=== PATIENT | female | born 2000 | race Caucasian/White ===

== ENCOUNTER 2025-01-15 18:13 | Emergency (ER) | payer OTHER ==
[~2025-01-15] VITALS: Ht 165.1 cm; Wt 89.1 kg
[2025-01-15] MEDS ORDERED: RABIES IMMUNE GLOBULIN 1500 INTERNATIONAL UNIT/5 ML VIAL IM.IMMUN ONE (20:45)
[2025-01-15 20:51] VITALS: BP 126/84; TEMP 97.6; O2SAT 98
[2025-01-15] MEDS: RABIES VACCINE HUMAN 2.5 INTERNATIONAL UNITS/ML VIAL (IMOVAX) IM ONE (20:59)
[2025-01-15] MEDS: RABIES IMMUNE GLOBULIN 1500 INTERNATIONAL UNIT/5 ML VIAL IM.IMMUN ONE (21:05)
[2025-01-15] MEDS: RABIES IMMUNE GLOBULIN 300 INTERNATIONAL UNITS/1 ML VIAL IM.IMMUN ONE (21:06)
== END 2025-01-15 21:17 | disposition home or self-care (01) ==
LOC: M ED 18:13
DX: Z20.3 Contact with and (suspected) exposure to rabies (principal); Z23 Encounter for immunization

== ENCOUNTER 2025-01-18 07:43 | Emergency (ER) | payer OTHER ==
[~2025-01-18] VITALS: Ht 165.1 cm; Wt 89.3 kg
[2025-01-18 07:50] VITALS: BP 115/74; TEMP 97.6; O2SAT 97
[2025-01-18] MEDS: RABIES VACCINE HUMAN 2.5 INTERNATIONAL UNITS/ML VIAL (IMOVAX) IM ONE (08:07)
== END 2025-01-18 08:13 | disposition home or self-care (01) ==
LOC: M ED 07:43
DX: Z20.3 Contact with and (suspected) exposure to rabies (principal); Z23 Encounter for immunization

== ENCOUNTER 2025-01-22 16:56 | Emergency (ER) | payer OTHER ==
[~2025-01-22] VITALS: Ht 165.1 cm; Wt 89.4 kg
[2025-01-22 17:00] VITALS: TEMP 97.8
[2025-01-22] MEDS: RABIES VACCINE HUMAN 2.5 INTERNATIONAL UNITS/ML VIAL (IMOVAX) IM ONE (18:33)
[2025-01-22 18:47] VITALS: BP 118/74; O2SAT 97
== END 2025-01-22 18:48 | disposition home or self-care (01) ==
LOC: M ED 16:56
DX: Z20.3 Contact with and (suspected) exposure to rabies (principal); Z23 Encounter for immunization

== ENCOUNTER 2025-01-24 10:26 | Inpatient (IN) | payer OTHER ==
[~2025-01-24] VITALS: Ht 165.1 cm; Wt 90.0 kg
[2025-01-24 11:05] LABS: PLATELET COUNT, AUTOMATED 364 10^3/uL (150-450)
[2025-01-24 11:35] LABS: ETHYL ALCOHOL (ETHANOL) < 0.003 % (0.000-0.010)
[2025-01-24 11:36] LABS: ALT/SGPT 17 U/L (7.0-40); AST/SGOT 14 U/L (<34); CALCIUM LEVEL 9.8 MG/DL (8.5-10.1); CARBON DIOXIDE LEVEL 23 MMOL/L (20-31); CHLORIDE LEVEL 106 MMOL/L (98-107); CREATININE FOR GFR 0.66 MG/DL (0.55-1.30); GLOMERULAR FILTRATION RATE > 90.0 (>60); POTASSIUM SERUM 4.3 MMOL/L (3.5-5.1); SALICYLATE LEVEL < 3.0 MG/DL (<30); SODIUM LEVEL 140 MMOL/L (136-145)
[2025-01-24 11:37] LABS: HCG, SERUM QUALITATIVE NEGATIVE (NEGATIVE)
[2025-01-24] MEDS ORDERED: HOME MED LIST COMPLETE! XX SCH (12:00)
[2025-01-24 12:44] LABS: AMPHETAMINES LEVEL URINE NEGATIVE (NEGATIVE); BARBITURATES URINE NEGATIVE (NEGATIVE); BENZODIAZEPINES URINE NEGATIVE (NEGATIVE); COCAINE METABOLITE URINE NEGATIVE (NEGATIVE); METHADONE URINE NEGATIVE (NEGATIVE); OPIATES URINE NEGATIVE (NEGATIVE)
[2025-01-24 12:45] LABS: PHENCYCLIDINE URINE NEGATIVE (NEGATIVE)
[2025-01-24 12:46] LABS: CANNABINOIDS URINE POSITIVE (NEGATIVE)
[2025-01-24] MEDS ORDERED: HALOPERIDOL 5 MG TAB PO PRN (13:50)
[2025-01-24] MEDS ORDERED: MOM 30 ML SUSPENSION UDC PO PRN (13:50)
[2025-01-24] MEDS ORDERED: ACETAMINOPHEN 325 MG TAB PO PRN (13:50)
[2025-01-24] MEDS ORDERED: LORazepam 1 MG TAB PO PRN (13:50)
[2025-01-24] MEDS ORDERED: IBUPROFEN 400 MG TAB PO PRN (13:50)
[2025-01-24] MEDS ORDERED: OLANZapine 5 MG TAB PO PRN (13:50)
[2025-01-24] MEDS ORDERED: MAALOX 30 ML SUSP *UDC PO PRN (13:50)
[2025-01-24] MEDS ORDERED: traZODone 50 MG TAB PO PRN (13:50)
[2025-01-24] MEDS: NICOTINE 14 MG/24 HR TRANSDERMAL TD SCH (16:48)
[2025-01-24 19:03] VITALS: BP 133/85; TEMP 98; O2SAT 99
[2025-01-25 06:56] VITALS: BP 130/69; TEMP 98; O2SAT 98
[2025-01-25 15:12] VITALS: BP 142/71; TEMP 98.9; O2SAT 100
[2025-01-25] MEDS: buPROPion **XL** 150 MG TABLET PO SCH (15:37)
[2025-01-26 06:23] VITALS: BP 143/79; TEMP 98.6; O2SAT 98
[2025-01-26 14:44] VITALS: BP 135/61; TEMP 99.3; O2SAT 99
[2025-01-27 06:31] VITALS: BP 135/64; TEMP 98.3; O2SAT 98
[2025-01-27] MEDS ORDERED: BUPR150T12 PO (09:48)
== END 2025-01-27 11:27 | disposition home or self-care (01) | DRG 885 ==
LOC: M ED 10:26 → EDBD 10:26 → M ED INP 13:50 → M ED 13:54 → M PSY 18:55
PROVIDERS: ADMIT Internal Medicine; ATTEND Internal Medicine
DX: F33.1 Major depressive disorder, recurrent, moderate (principal); R45.851 Suicidal ideations; F41.1 Generalized anxiety disorder; F90.9 Attention-deficit hyperactivity disorder, unspecified type; Z62.810 Personal history of physical and sexual abuse in childhood; Z81.8 Family history of other mental and behavioral disorders; F17.200 Nicotine dependence, unspecified, uncomplicated; Z91.011 Allergy to milk products

== ENCOUNTER 2025-01-29 15:43 | Emergency (ER) | payer OTHER ==
[~2025-01-29] VITALS: Ht 165.1 cm; Wt 89.1 kg
[~2025-01-29 15:43] MED LIST: BUPR150T12 PO
[2025-01-29] MEDS: RABIES VACCINE HUMAN 2.5 INTERNATIONAL UNITS/ML VIAL (IMOVAX) IM ONE (17:05)
[2025-01-29 17:16] VITALS: BP 132/80; TEMP 97.9; O2SAT 97
== END 2025-01-29 17:17 | disposition home or self-care (01) ==
LOC: M ED 15:43
DX: Z23 Encounter for immunization (principal); Z20.3 Contact with and (suspected) exposure to rabies; E73.9 Lactose intolerance, unspecified